=== PATIENT | female | born 1970 | race Two or more races ===

== ENCOUNTER 2018-12-26 03:46 | Emergency (ER) | payer OTHER ==
[~2018-12-26] VITALS: Ht 170.2 cm; Wt 65.8 kg
[2018-12-26] MEDS ORDERED: LORAZEPAM 1 MG TABLET PO ONE (04:00)
--- NOTE | 2018-12-26 04:02 | NUR ---
to ER 10; no acute distress
--- NOTE | 2018-12-26 04:05 | NUR ---
PATIENT WITH SUICIDAL IDEATION, WITH PLAN TO "RUN INTO TRAFFIC"
[2018-12-26] MEDS ORDERED: LORAZEPAM 1 MG TABLET ONE (04:11)
--- NOTE | 2018-12-26 04:15 | NUR ---
PATIENT MEDICATED ORDERED, LAB AT BEDSIDE FOR BLOOD DRAW
[2018-12-26 04:20] LABS: BASOPHILS # (AUTO) 0.1 /CMM (0.0-0.2); BASOPHILS % (AUTO) 0.8 % (0.0-2.0); EOSINOPHILS % (AUTO) 1.7 % (0.0-6.0); HEMATOCRIT 45 % (33-45); HEMOGLOBIN 15.2 g/dL (11.5-14.8); LYMPHOCYTES # (AUTO) 2.3 /CMM (0.8-4.8); LYMPHOCYTES % (AUTO) 31.5 % (20.0-44.0); MEAN CORPUSCULAR HGB CONC 34 g/dl (31.0-36.0); MEAN CORPUSCULAR VOLUME 95 fL (82-100); MONOCYTES # (AUTO) 0.6 /CMM (0.1-1.30); NEUTROPHILS # (AUTO) 4.2 /CMM (1.8-8.9); PLATELET COUNT (AUTO) 298 /CMM (150-450); RED BLOOD CELL COUNT(AUTO) 4.72 MIL/uL (4.0-5.2); WHITE BLOOD COUNT (AUTO) 7.3 K/uL (4.3-11.0)
[2018-12-26 04:26] LABS: CALCIUM, SERUM 8.7 mg/dL (8.5-10.1); CREATININE 0.8 mg/dL (0.6-1.3); POTASSIUM 4.3 mmol/L (3.5-5.1)
--- NOTE | 2018-12-26 04:30 | NUR ---
[facility]AT[facility] AT BEDSIDE FOR CRISIS EVALUATION
--- NOTE | 2018-12-26 05:00 | NUR ---
MITZY AZULW FAXED PAPERWORK TO [facility] FOR POSSIBLE VOLUNTARY ADMISSION TO [facility]
--- NOTE | 2018-12-26 05:25 | NUR ---
PT HAS BEEN ACCEPTED AT [facility]. ACCEPTING MD: DR. JACKSON NUMBER TO CALL REPORT IS: [phone]
--- NOTE | 2018-12-26 05:28 | NUR ---
CALLED [facility] RE: BLS TRANSPORT TO [facility]. ETA [id number]. TRIP #: [id number].
--- NOTE | 2018-12-26 05:39 | NUR ---
CALLED [facility], SPOKE TO NURSE JODEE FOR REPORT, ALL PERTINENT INFORMATION GIVEN. PATIENT TO GO TO RM 601, BED B, SCHEDULED [facility]PS[facility] FOR [phone]
--- NOTE | 2018-12-26 05:42 | NUR ---
WILFREDO CALLED FROM [facility] RE: ETA IS NOW 0830.
--- NOTE | 2018-12-26 06:50 | NUR ---
SPOKE TO PT FRIEND ON PHONE. STATED HE IS 1 HOUR AWAY AND WILL COME PICK HER UP. SPOKE TO PT, STATES SHE NO LONGER WANTS TO BE TRANSFERED AND WANTS TO LEAVE WITH FRIEND.
--- NOTE | 2018-12-26 08:22 | NUR ---
PT. VERBALIZED UNDERSTANDING OF AFTERCARE INSTRUCTIONS.Patient discharged to home with family in stable condition. Written and verbal after care instructions given. Patient verbalizes understanding of instruction and plan for follow-up care.
[2018-12-26 08:24] VITALS: BP 134/81
== END 2018-12-26 08:24 | disposition home or self-care (01) ==
LOC: ER 03:48
DX: R45.851 Suicidal ideations (principal); F17.200 Nicotine dependence, unspecified, uncomplicated; Z76.5 Malingerer [conscious simulation]; Z59.0 Homelessness
CPT/HCPCS: 36415; 80048-TC; 80305; 84703-TC; 85025-TC; G0480

== ENCOUNTER 2024-02-06 15:27 | Inpatient (IN) | payer OTHER ==
[~2024-02-06] VITALS: Ht 167.6 cm; Wt 82.1 kg
[2024-02-06] MEDS ORDERED: TOPI50TA24 PO (16:04)
[2024-02-06] MEDS ORDERED: ACET-868 PO (16:04)
[2024-02-06] MEDS ORDERED: GABA-532 PO (16:04)
[2024-02-06] MEDS ORDERED: CHLO25CA10 PO (16:04)
[2024-02-06] MEDS ORDERED: LOPE2TAB25 PO (16:04)
[2024-02-06] MEDS: IV NS 0.9% 1,000 ML BAG IV ONE ×2 (16:04→17:25)
[2024-02-06] MEDS ORDERED: GUAI100S34 PO (16:04)
[2024-02-06] MEDS ORDERED: THIA100T68 PO (16:04)
[2024-02-06] MEDS ORDERED: HYDR28.32 TP (16:04)
[2024-02-06] MEDS ORDERED: FAMO20TA8 PO (16:04)
[2024-02-06] MEDS ORDERED: BENZ1LOZ58 MM (16:04)
[2024-02-06] MEDS ORDERED: TRAZ-257 PO (16:04)
[2024-02-06] MEDS ORDERED: LORA-259 PO (16:04)
[2024-02-06 16:14] LABS: BASOPHILS % (AUTO) 0.1 % (0.0-2.0); EOSINOPHILS # (AUTO) 0.1 K/uL (0.0-0.7); EOSINOPHILS % (AUTO) 0.9 % (0.0-6.0); HEMATOCRIT 41 % (33-45); HEMOGLOBIN 13.9 g/dL (11.5-14.8); LYMPHOCYTES # (AUTO) 1.4 K/uL (0.8-4.8); LYMPHOCYTES % (AUTO) 9.1 % (20.0-44.0); MEAN CORPUSCULAR HEMOGLOBIN 31 PG (26.0-33.0); MEAN CORPUSCULAR HGB CONC 34 g/dl (31.0-36.0); MEAN CORPUSCULAR VOLUME 93 fL (82-100); MONOCYTES # (AUTO) 0.9 K/uL (0.1-1.30); MONOCYTES % (AUTO) 6.3 % (2.0-12.0); NEUTROPHILS # (AUTO) 12.4 K/uL (1.8-8.9); NEUTROPHILS % (AUTO) 83.6 % (43.0-81.0); PLATELET COUNT (AUTO) 190 K/uL (150-450); RED BLOOD CELL COUNT(AUTO) 4.46 MIL/uL (4.0-5.2); RED CELL DISTRIBUTION WIDTH 13.6 % (11.5-15.0); WHITE BLOOD COUNT (AUTO) 14.8 K/uL (4.3-11.0)
[2024-02-06 16:20] LABS: CALCIUM, SERUM 8.3 mg/dL (8.5-10.1); CARBON DIOXIDE 21 mmol/L (21-32); CHLORIDE 105 mmol/L (98-107); CREATININE 1.1 mg/dL (0.6-1.3); GLUCOSE 105 mg/dL (74-106); POTASSIUM 3.6 mmol/L (3.5-5.1); SODIUM SERUM 136 mmol/L (136-145); UREA NITROGEN, BLOOD 15 mg/dL (7-18)
[2024-02-06 16:28] LABS: LACTIC ACID 0.9 mmol/L (0.4-2.0)
[2024-02-06 16:35] LABS: ALANINE AMINOTRANSFERASE 44 U/L (12-78); ALBUMIN 3.2 g/dL (3.4-5.0); ALKALINE PHOSPHATASE 129 U/L (46-116); BILIRUBIN,DIRECT 0.2 mg/dL (0.0-0.2); TOTAL PROTEIN, SERUM 7.3 g/dL (6.4-8.2)
[2024-02-06 16:44] LABS: ASPARTATE AMINOTRANSFERASE 26 U/L (15-37)
[2024-02-06 16:48] LABS: APPEARANCE,URINE SLIGHTLY CLOUDY (CLEAR); BILIRUBIN,URINE NEGATIVE (NEGATIVE); BLOOD, URINE TRACE-INTA Ery/uL (NEGATIVE); COLOR,URINE YELLOW (YELLOW); KETONES,URINE NEGATIVE (NEGATIVE); LEUKOCYTE ESTERASE ,URINE TRACE (NEGATIVE); NITRITE, URINE NEGATIVE (NEGATIVE); PROTEIN,URINE NEGATIVE (NEGATIVE); UGLUCOSE NEGATIVE (NEGATIVE); UROBILINOGEN,URINE 0.2 EU/dL (0.2)
[2024-02-06 16:54] LABS: INR 1.07 (0.91-1.10); PARTIAL THROMBOPLASTIN TIME 30.8 SEC (24.3-34.3); PROTHROMBIN TIME 11.3 SECS (9.2-11.1)
[2024-02-06 17:09] LABS: ADD URINE CULTURE YES; BACTERIA,URINE 2+ /HPF (None Seen); COARSE GRANULAR CASTS,URINE Few /LPF (None Seen); URINE AMORPHOUS URATE Few /HPF (None Seen)
[2024-02-06] MEDS ORDERED: LEVOFLOXACIN 750 MG /D5W 150ML 150 ML IV ONE (17:27)
[2024-02-06] MEDS: LEVOFLOXACIN 750 MG /D5W 150ML 150 ML IV ONE (17:35)
[2024-02-06] MEDS ORDERED: LORAZEPAM 1 MG TABLET PO PRN (19:00)
[2024-02-06] MEDS ORDERED: LOPERAMIDE HCL (2 MG CAP) 2 MG CAPSULE PO PRN (19:00)
[2024-02-06] MEDS ORDERED: INSULIN REGULAR, HUMAN 100 UNIT/ML 3 ML VIAL SQ PRN (19:00)
[2024-02-06] MEDS ORDERED: Z GUARD REMEDY 4 OZ OINT TP PRN (19:00)
[2024-02-06] MEDS ORDERED: MENTHOL/CETYLPYRD (CEPACOL) 1 LOZ LOZENGE PO PRN (19:00)
[2024-02-06] MEDS ORDERED: ACETAMINOPHEN 325 MG TABLET PO PRN ×2 (19:00)
[2024-02-06] MEDS ORDERED: ONDANSETRON HCL/PF 4 MG/2 ML VIAL IVP PRN (19:00)
[2024-02-06] MEDS ORDERED: MAG HYDROX/AL HYDROX/SIMETH 30 ML UDC PO PRN (19:00)
[2024-02-06] MEDS ORDERED: DEXTROSE 50%-WATER 50 ML DISP.SYRIN IV PRN (19:00)
[2024-02-06] MEDS ORDERED: MAGNESIUM HYDROXIDE 30 ML UDC PO PRN (19:00)
[2024-02-06 20:10] VITALS: BP 88/65; TEMP 97.7; O2SAT 100
[2024-02-06] MEDS: IV NS 0.9% 1,000 ML IV PRN (20:29)
[2024-02-06] MEDS: TRAZODONE 50 MG TABLET PO SCH (21:58)
[2024-02-06] MEDS: BLOOD SUGAR DIAGNOSTIC 1 EACH STRIP VI SCH (22:07)
[2024-02-06] MEDS: *INSULIN REGULAR(HUMULIN R)HUM 100 UNIT/ML VIAL SQ PRN (22:09)
[2024-02-07 04:00] VITALS: BP 90/62; TEMP 97.7; O2SAT 100
[2024-02-07 06:45] LABS: EOSINOPHILS # (AUTO) 0.2 K/uL (0.0-0.7); EOSINOPHILS % (AUTO) 1.7 % (0.0-6.0); HEMATOCRIT 42 % (33-45); HEMOGLOBIN 13.7 g/dL (11.5-14.8); LYMPHOCYTES # (AUTO) 1.5 K/uL (0.8-4.8); LYMPHOCYTES % (AUTO) 15.8 % (20.0-44.0); MEAN CORPUSCULAR HEMOGLOBIN 32 PG (26.0-33.0); MEAN CORPUSCULAR HGB CONC 33 g/dl (31.0-36.0); MEAN CORPUSCULAR VOLUME 99 fL (82-100); MONOCYTES # (AUTO) 0.9 K/uL (0.1-1.30); MONOCYTES % (AUTO) 9.6 % (2.0-12.0); NEUTROPHILS % (AUTO) 72.9 % (43.0-81.0); PLATELET COUNT (AUTO) 119 K/uL (150-450); RED BLOOD CELL COUNT(AUTO) 4.28 MIL/uL (4.0-5.2); RED CELL DISTRIBUTION WIDTH 14.6 % (11.5-15.0); WHITE BLOOD COUNT (AUTO) 9.6 K/uL (4.3-11.0)
[2024-02-07 07:34] LABS: CALCIUM, SERUM 7.1 mg/dL (8.5-10.1); CREATININE 0.9 mg/dL (0.6-1.3); MAGNESIUM 2.4 mg/dL (1.8-2.4); PHOSPHORUS 2.5 mg/dL (2.5-4.9); POTASSIUM 3.5 mmol/L (3.5-5.1)
[2024-02-07] MEDS: CHLORDIAZEPOXIDE HCL 25 MG CAPSULE PO SCH (09:06)
[2024-02-07] MEDS: TOPIRAMATE 25 MG TABLET PO SCH (09:06)
[2024-02-07] MEDS: GABAPENTIN 100 MG CAPSULE PO SCH (09:07)
[2024-02-07] MEDS: FAMOTIDINE (20 MG) 20 MG TABLET PO SCH (09:07)
[2024-02-07] MEDS: THIAMINE HCL 100 MG TABLET PO SCH (09:07)
[2024-02-07 12:00] VITALS: BP 90/54; TEMP 98.8; O2SAT 100
[2024-02-07] MEDS: GUAIFENESIN 300 MG/15 ML UDC PO PRN (19:44)
[2024-02-07 21:13] VITALS: BP 85/56; TEMP 96; O2SAT 100
[2024-02-07 21:21] VITALS: BP 100/60; TEMP 96; O2SAT 100
[2024-02-08 04:38] VITALS: BP 103/72; TEMP 98; O2SAT 100
[2024-02-08 05:00] VITALS: O2SAT 100
[2024-02-08 07:38] LABS: BASOPHILS % (AUTO) 0.1 % (0.0-2.0); EOSINOPHILS # (AUTO) 0.2 K/uL (0.0-0.7); EOSINOPHILS % (AUTO) 1.6 % (0.0-6.0); HEMATOCRIT 38 % (33-45); HEMOGLOBIN 12.8 g/dL (11.5-14.8); LYMPHOCYTES # (AUTO) 1.3 K/uL (0.8-4.8); LYMPHOCYTES % (AUTO) 13.7 % (20.0-44.0); MEAN CORPUSCULAR HEMOGLOBIN 32 PG (26.0-33.0); MEAN CORPUSCULAR HGB CONC 34 g/dl (31.0-36.0); MEAN CORPUSCULAR VOLUME 94 fL (82-100); MONOCYTES # (AUTO) 0.9 K/uL (0.1-1.30); MONOCYTES % (AUTO) 9.4 % (2.0-12.0); NEUTROPHILS # (AUTO) 7.1 K/uL (1.8-8.9); NEUTROPHILS % (AUTO) 75.2 % (43.0-81.0); PLATELET COUNT (AUTO) 152 K/uL (150-450); RED BLOOD CELL COUNT(AUTO) 4.04 MIL/uL (4.0-5.2); RED CELL DISTRIBUTION WIDTH 13.7 % (11.5-15.0); WHITE BLOOD COUNT (AUTO) 9.5 K/uL (4.3-11.0)
[2024-02-08 08:36] LABS: CALCIUM, SERUM 7.2 mg/dL (8.5-10.1); CREATININE 0.9 mg/dL (0.6-1.3); POTASSIUM 3.6 mmol/L (3.5-5.1)
[2024-02-08 14:11] VITALS: BP 98/56; TEMP 97.4; O2SAT 96
== END 2024-02-08 14:46 | disposition home or self-care (01) | DRG 249 ==
LOC: ER 15:47 → TELE1 19:07 → MEDSG1 02-07 05:22
PROVIDERS: ADMIT Internal Medicine; ATTEND Internal Medicine
DX: A09 Infectious gastroenteritis and colitis, unspecified (principal); E43 Unspecified severe protein-calorie malnutrition; E86.0 Dehydration; N39.0 Urinary tract infection, site not specified; K21.9 Gastro-esophageal reflux disease without esophagitis; F41.9 Anxiety disorder, unspecified; Z20.822 Contact with and (suspected) exposure to COVID-19; Z59.00 Homelessness unspecified; Z88.0 Allergy status to penicillin; F31.9 Bipolar disorder, unspecified; Z79.899 Other long term (current) drug therapy; D72.829 Elevated white blood cell count, unspecified; G62.9 Polyneuropathy, unspecified; E88.09 Other disorders of plasma-protein metabolism, not elsewhere classified; I10 Essential (primary) hypertension
CPT/HCPCS: 36415; 71045-TC; 80048-TC; 80076-TC; 81001; 82962-TC; 83605-TC; 83735-TC; 84100-TC; 84484-TC; 85025-TC; 85730-TC; 87040-TC; 87086-TC; A4223; G0378; J1815; J1956; J7030